=== PATIENT | male | born 1985 | race Hispanic/Latino ===

== ENCOUNTER 2022-01-27 07:42 | Emergency (ER) | payer OTHER ==
[~2022-01-27] VITALS: Ht 160 cm; Wt 81.6 kg
[2022-01-27 07:43] VITALS: BP 166/98
[2022-01-27 08:16] LABS: APPEARANCE,URINE CLEAR (CLEAR); BILIRUBIN,URINE NEGATIVE (NEGATIVE); COLOR,URINE YELLOW (YELLOW); GLUCOSE, URINE (UA) 100 mg/dL (NEGATIVE); KETONES,URINE NEGATIVE (NEGATIVE); LEUKOCYTE ESTERASE ,URINE NEGATIVE (NEGATIVE); NITRATE,URINE NEGATIVE (NEGATIVE); OCCULT BLOOD,URINE NEGATIVE (NEGATIVE); PROTEIN,URINE NEGATIVE (NEGATIVE)
[2022-01-27 08:24] LABS: BACTERIA,URINE Rare /HPF (None Seen); RBC,URINE 0-1 /HPF (0-1); SQUAMOUS EPITHELIAL CELL,UR Rare /HPF (0-2); WBC,URINE 0-1 /HPF (0-1)
[2022-01-27] MEDS ORDERED: KETOROLAC 60 MG VIAL (30MG/ML) IM ONE (08:30)
[2022-01-27] MEDS ORDERED: DICL50TA9 PO (09:20)
== END 2022-01-27 09:34 | disposition home or self-care (01) ==
LOC: EDH 07:42
DX: M54.42 Lumbago with sciatica, left side (principal); Z79.1 Long term (current) use of non-steroidal anti-inflammatories (NSAID)
CPT/HCPCS: 99284; 81001; 73502; 72100; 96372; J1885

== ENCOUNTER 2022-06-21 08:30 | Emergency (ER) | payer SELFPAY ==
[~2022-06-21] VITALS: Ht 160 cm; Wt 77.1 kg
[~2022-06-21 08:30] MED LIST: DICL50TA9 PO
[2022-06-21] MEDS ORDERED: DEXAMETHASONE SOD PHOSPHATE 4 MG/ML 1ML VIAL IM STA (08:37)
[2022-06-21] MEDS ORDERED: KETOROLAC 30MG VIAL (30MG/ML) IM ONE (09:00)
[2022-06-21 09:14] LABS: APPEARANCE,URINE CLEAR (CLEAR); BILIRUBIN,URINE NEGATIVE (NEGATIVE); COLOR,URINE YELLOW (YELLOW); GLUCOSE, URINE (UA) >=1000 mg/dL (NEGATIVE); KETONES,URINE NEGATIVE (NEGATIVE); LEUKOCYTE ESTERASE ,URINE NEGATIVE Leu/uL (NEGATIVE); NITRATE,URINE NEGATIVE (NEGATIVE); OCCULT BLOOD,URINE NEGATIVE (NEGATIVE); PH,URINE 6.5 (5.0-8.0); PROTEIN,URINE 20 mg/dL (NEGATIVE); UROBILINOGEN,URINE 3 mg/dL (0.2-1.0)
[2022-06-21 09:16] LABS: HEMATOCRIT 41.4 % (42-54); MEAN CORPUSCULAR HEMOGLOBIN 29.8 pg (27.0-33.0); RED BLOOD CELL COUNT(AUTO) 4.87 MIL/uL (4.50-6.20); RED CELL DISTRIBUTION WIDTH 12.8 % (11.0-15.5); WHITE BLOOD COUNT (AUTO) 18.6 K/uL (4.8-10.8)
[2022-06-21] MEDS ORDERED: CEFTRIAXONE 500MG VIAL IM STA (09:23)
[2022-06-21] MEDS ORDERED: AMOX500C2 PO (09:27)
[2022-06-21 09:28] LABS: MUCUS,URINE RARE LPF (None Seen); SQUAMOUS EPITHELIAL CELL,UR RARE /HPF (0-2); WBC,URINE 0-1 /HPF (0-1)
[2022-06-21 09:35] LABS: POTASSIUM 3.5 mmol/L (3.5-5.1)
[2022-06-21 09:39] VITALS: BP 138/85
[2022-06-21 09:39] LABS: ALBUMIN 3.8 g/dL (3.5-5.0); TOTAL PROTEIN, SERUM 7.8 g/dL (6.0-8.3)
[2022-06-21 10:24] LABS: CREATININE 1.1 mg/dL (0.5-1.5)
== END 2022-06-21 09:44 | disposition home or self-care (01) ==
LOC: EDH 08:30
DX: J02.0 Streptococcal pharyngitis (principal); Z20.822 Contact with and (suspected) exposure to COVID-19
CPT/HCPCS: 99284; 87635; 84484; 80053; 85027; 87880; 87804 ×2; 81001; 36415; 96372 ×2; J1100; C9803; J1885; J0696